=== PATIENT | female | born 1995 | race Caucasian/White ===

== ENCOUNTER 2016-06-20 12:08 | Emergency (ER) | payer OTHER ==
[~2016-06-20] VITALS: Ht 167.6 cm; Wt 59.0 kg
[~2016-06-20 12:08] MED LIST: CIPROFLOXACIN500 M1 PO; HYDROCODON-ACE1 EAC7 PO; IBUPROFEN 600600 M1 PO; MACROBID 100 M100 M1 PO; PRENATAL; TRAMADOL 50 MG50 MG PO; ZOFRAN4 MG PO
[2016-06-20 12:12] VITALS: BP 125/87
[2016-06-20] MEDS ORDERED: DOXYCYCLINE 10100 MG PO (12:28)
== END 2016-06-20 12:45 | disposition home or self-care (01) ==
LOC: ER 12:08
DX: L02.01 Cutaneous abscess of face (principal); F12.10 Cannabis abuse, uncomplicated